=== PATIENT | male | born 1955 | race Caucasian/White ===

== ENCOUNTER 2019-06-18 06:07 | Inpatient (IN) | payer MEDICARE, MEDICAID ==
[2019-06-18] VITALS (21 sets, daily range): BP systolic 97–138; BP diastolic 62–97
[~2019-06-18] VITALS: Ht 172.7 cm; Wt 65.8 kg
[~2019-06-18 06:07] MED LIST: ASPI-1265 PO; ATOR-2 PO; CLOP75TA35 PO; LISI-604 PO; albuterol 2.5 MG/3 ML nebule NEB ONE; cefazolin/dext.iso 2gm/50ml 50 ML IV ONE; famotidine 20mg tablet PO ONE; normal saline 1000ml 500 ML IV ONE
[2019-06-18] MEDS ORDERED: LIDOcaine 1% (10mg/ml) 2ml vial ONE (06:54)
[2019-06-18] MEDS ORDERED: ceFAZolin 1000mg inj ONE (06:54)
[2019-06-18] MEDS ORDERED: heparin 10,000 units/1 ML INJ ONE (06:54)
[2019-06-18 08:25] LABS: PRE OP PROTIME 10.4 SECONDS (9.0-12.0)
[2019-06-18] MEDS ORDERED: midazolam 2 mg/2 ml injection ONE (09:51)
[2019-06-18] MEDS ORDERED: fentaNYL /PF 50mcg/ml 5ml ampule ONE (09:52)
[2019-06-18] MEDS ORDERED: sevoflurane 250ml liquid IH ONE (09:53)
[2019-06-18] MEDS ORDERED: albumin (Human) 5% 250ml 250 ML IV ONE (10:29)
[2019-06-18] MEDS ORDERED: propofol inj 20 ML IV ONE (10:29)
[2019-06-18] MEDS ORDERED: rocuronium 10mg/ml inj IV ONE (10:29)
[2019-06-18] MEDS ORDERED: dexamethasone sod phosphate 4mg/ml inj. ONE (10:29)
[2019-06-18] MEDS ORDERED: ePHEDrine 50MG/ML INJ. ONE (10:33)
[2019-06-18] MEDS ORDERED: ringers solution, lacted 1,000 ML IV SCH (11:16)
[2019-06-18] MEDS ORDERED: ondansetron/PF 4mg/2ml inj IV PRN ×2 (11:20→12:20)
[2019-06-18] MEDS ORDERED: proCHLORperazine 10 MG/2 ml inj IV PRN (11:20)
[2019-06-18] MEDS ORDERED: meperidine/PF 25mg/ml syringe IV PRN ×3 (11:20)
[2019-06-18] MEDS ORDERED: morphine 4 MG/ML inj SYRINge IV PRN ×2 (11:20)
--- NOTE | 2019-06-18 12:02 | NUR ---
Received from OR via daniele , accompanied by Anesthesiologist anne and report given by Anesthesiolgist. patient with 18g piv in left ue running lr at 100. denies pain. bilateral inguinal provena vacs pulling and have no audible leaks. patient denies pain currently, art line in right ue will be removed shortly. vss. 10l mask on with 100% saturations. Addendum: 06/18/19 at 1221 by Lee Garcia RN, RN Amended: Links added.
--- NOTE | 2019-06-18 13:30 | NUR ---
Patient in room PAS IN 900. I have received report from Lee MOHAN and had the opportunity to ask questions and assume patient care.
--- NOTE | 2019-06-18 13:32 | NUR ---
Report called to receiving nurse. Transferred via PCU BED WITH ONE BAG OF Belongings . KIMBERLEE JOHNSON PRESENT TO ACCEPT CARE. Special Issues communicated to receiving nurse ELIZABETH MOHAN.BED LOW DRESSINGS CDI . VSS. DENIES PAIN. ONE BAG OF BELONGINGS PLACED IN CLOSET OF 3023B. MOTHER PRESENT OUTSIDE OF ROOM. Addendum: 06/18/19 at 1415 by Lee Garcia RN, RN Amended: Links added.
--- NOTE | 2019-06-18 13:45 | NUR ---
Patient received from PACU. Vital signs taken and within normal limits. monitoring tech placed and alarms audible. Patient oriented to room and call light.
--- NOTE | 2019-06-18 17:57 | NUR ---
[place] documentation: I have reviewed and agree with all interventions, assessments performed and documented by Iesha MOHAN. [place] Medication Administration: For this medication-pass time frame, all medication were reviewed, dispensed, administered and documented per hospital policy by Iesha MOHAN.
--- NOTE | 2019-06-18 18:27 | NUR ---
Problems reprioritized. Patient report given, questions answered & plan of care reviewed with Abbey RN. Patient stable at time of transfer of care.
[2019-06-19 01:30] VITALS: BP 104/57
[2019-06-19 02:00] VITALS: BP 104/57
--- NOTE | 2019-06-19 05:49 | NUR ---
RIMA urias at [id number]
[2019-06-19 06:00] VITALS: BP 111/59
--- NOTE | 2019-06-19 06:30 | NUR ---
Patient in room PCU 3023. I have received report from KIMBERLEE Potter and had the opportunity to ask questions and assume patient care.
--- NOTE | 2019-06-19 06:59 | NUR ---
Problems reprioritized. Patient report given, questions answered & plan of care reviewed with Lázaro MOHAN.
[2019-06-19] MEDS ORDERED: lisinopril 5mg tablet PO SCH (08:00)
[2019-06-19] MEDS ORDERED: atorvastatin 20mg tablet PO SCH (08:00)
[2019-06-19] MEDS ORDERED: aspirin 81mg tab.chew PO SCH (08:00)
--- NOTE | 2019-06-19 10:53 | NUR ---
patient discharged. PIV taken out and tele returned. Educated on femoral bypass care and follow up with Dr Gonzalez. Arroyo per md for DC. Auxillary came up tp mixing picker tender patient. Forms and medicare signed. Wrist bands cutoff.
== END 2019-06-19 09:54 | disposition home or self-care (01) | DRG 254 ==
LOC: PAS IN 06:07 → EDSTATUS 10:15 → PCU 3S 13:52
PROVIDERS: ADMIT Surgery; ATTEND Surgery
PROC: 041L0JJ Bypass Left Femoral Artery to Left Femoral Artery with Synthetic Substitute, Open Approach (ICD-10-PCS; 2019-06-18)
PROC: 041K0JH Bypass Right Femoral Artery to Right Femoral Artery with Synthetic Substitute, Open Approach (ICD-10-PCS; principal; 2019-06-18 09:53)
DX: I70.213 Atherosclerosis of native arteries of extremities with intermittent claudication, bilateral legs (principal); J44.9 Chronic obstructive pulmonary disease, unspecified; F17.210 Nicotine dependence, cigarettes, uncomplicated; F41.9 Anxiety disorder, unspecified; N18.3 Chronic kidney disease, stage 3 (moderate)
CPT/HCPCS: 36415; 82948; 85610; 85730; 86885; 86900; 86901; 86920; 87081; 94640; 94760; A4215; A4618; A6258; A7000; C1758; C1768; G0378; J0690; J1100; J1644; J2001; J2250; J2704; J3010; J7030; J7040; J7120; P9045